=== PATIENT | male | born 1925 | race Caucasian/White ===

== ENCOUNTER → 2016-08-18 | Outpatient (CLI) | payer OTHER ==
[~2016-08-18] MED LIST: CEPHALEXIN500 M1 PO; FERRO-TIME325 MG PO; FINASTERIDE5 MG PO; LO-DOSE ASPIRIN81 M1 PO; NAPROSYN250 M1 PO; RAMIPRIL5 MG PO
--- NOTE | ~2016-08-18 | CR63 ---
[facility] A Service of [facility] RADIOLOGY TEXT RESULTS PATIENT: GRECIA PONCE LOCATION: [facility] : [birth year] UNIT #: [id number] AGE: [address]: Noé Reinoso MD SEX: M ORDER DR: [id number] [facility] [address] [facility] [place], [place] [address] [id number] O MR#: [id number] Acc #: [id number] NAME: GRECIA PONCE : 1925 SEX: M STUDY DATE/TIME: 08/18/2016 12:53 UNIT: [facility] ROOM: STUDY DESCRIPTION: CR Chest 2 View Attending Physician: Noé Reinoso M.D. Referring Physician: Noé Reinoso M.D. Ordering Physician: Noé Reinoso M.D. Primary Care Physician: Noé Reinoso M.D. MEDICAL IMAGING REPORT This report is preliminary unless electronic signature is present EXAM Two-view chest INDICATION Bronchitis. 1-month duration. Wheezing and cough. FINDINGS PA and lateral views of the chest compared to 01/21/2016. The heart and mediastinal contours are unchanged. There is background COPD. Bibasilar airspace opacities and/or effusions are unchanged. No pneumothorax. IMPRESSION 1. Background COPD. 2. Chronic bibasilar atelectasis and/or scarring. There may be a small left pleural effusion versus parenchymal scarring. This is unchanged. Dictated by... Baldemar Gasca M.D. THIS IS AN ELECTRONICALLY VERIFIED REPORT Baldemar Gasca M.D. at 08/19/2016 10:43 AM CARLOS/wilmer TD: 08/19/2016 09:45 JOB #: [id number] MEDICAL IMAGING REPORT Page 1 of 1 COPY
== END | disposition home or self-care (01) ==
LOC: CRAD 12:41
DX: J40 Bronchitis, not specified as acute or chronic (principal); J44.9 Chronic obstructive pulmonary disease, unspecified
CPT/HCPCS: 71020